=== PATIENT | male | born 1980 | race Caucasian/White ===

== ENCOUNTER 2017-12-12 12:01 | Emergency (ER) | payer MEDICAID, MEDICARE ==
[~2017-12-12] VITALS: Ht 162.6 cm; Wt 62.0 kg
[2017-12-12 16:25] VITALS: BP 122/84
== END 2017-12-12 18:57 | disposition home or self-care (01) ==
LOC: ER 13:07
DX: G62.9 Polyneuropathy, unspecified (principal); F17.200 Nicotine dependence, unspecified, uncomplicated; F12.10 Cannabis abuse, uncomplicated; Z48.89 Encounter for other specified surgical aftercare
CPT/HCPCS: 99283

== ENCOUNTER 2018-01-18 22:21 | Emergency (ER) | payer MEDICAID | END 2018-01-19 01:30 | disposition left against medical advice (07) | LOC: ER 01-19 00:51 | DX: R21 Rash and other nonspecific skin eruption (principal); Z53.21 Procedure and treatment not carried out due to patient leaving prior to being seen by health care provider ==

== ENCOUNTER 2019-04-02 19:54 | Emergency (ER) | payer MEDICAID, MEDICARE | END 2019-04-02 20:30 | disposition left against medical advice (07) | LOC: ER 20:28 | DX: M54.9 Dorsalgia, unspecified (principal); M79.606 Pain in leg, unspecified; Z53.21 Procedure and treatment not carried out due to patient leaving prior to being seen by health care provider ==

== ENCOUNTER 2025-05-25 15:03 | Emergency (ER) | payer SELFPAY ==
[~2025-05-25] VITALS: Ht 165.1 cm; Wt 68.0 kg
[2025-05-25 15:12] VITALS: BP 124/88; PULSE 76; RESP 16; TEMP 98.4; O2SAT 97
[2025-05-25 17:00] LABS: BASOPHILS % 0.2 % (0.0-2.0); EOSINOPHILS % 0.2 % (0.0-5.0); HEMATOCRIT. 44.5 % (42.0-52.0); HEMOGLOBIN. 15.1 g/dL (14.0-18.0); LYMPHOCYTES % 10.0 % (20.0-50.0); MEAN PLATELET VOLUME 7.2 fl (7.4-10.4); MONOCYTES % 5.5 % (2.0-8.0); NEUTROPHILS % 84.1 % (40.0-76.0); PLATELET 278 x1000/uL (130-400); RED BLOOD CELL COUNT 4.67 mill/uL (4.7-6.1); RED CELL DISTRIBUTION WIDTH 12.9 % (11.6-14.6)
[2025-05-25 17:14] LABS: CREATININE 0.8 mg/dL (0.6-1.3)
[2025-05-25 17:15] LABS: ETHANOL BLOOD 267 mg/dL (<10); PROTEIN TOTAL 6.9 g/dL (6.0-8.3); UREA NITROGEN BLOOD 11 mg/dL (9-23)
[2025-05-25 17:16] LABS: ASPARTATE AMINOTRANSFERASE 23 IU/L (<34)
[2025-05-25 17:17] LABS: BILIRUBIN DIRECT < 0.1 mg/dL (<=3.0); BILIRUBIN TOTAL 0.3 mg/dL (0.1-1.0)
[2025-05-25] MEDS ORDERED: MAGNESIUM/ALUMINUM HYDROXIDE/SIMETHICONE 30ML UDC PO PRN (20:15)
[2025-05-25] MEDS ORDERED: ACETAMINOPHEN 325MG TABLET PO PRN (20:15)
[2025-05-25] MEDS ORDERED: CLONIDINE 0.1MG TABLET PO PRN (20:15)
[2025-05-25] MEDS ORDERED: ONDANSETRON HCL 4MG/2ML INJ IV PRN (20:15)
[2025-05-25] MEDS ORDERED: ZOLPIDEM TARTRATE 5MG TABLET PO PRN (20:15)
[2025-05-25] MEDS ORDERED: MORPHINE SULFATE 2 MG/ML INJ (NOT FOR IM USE) IV PRN (20:15)
[2025-05-25] MEDS ORDERED: HYDROCODONE/ACETAMINOPHEN 5/325MG TABLET PO PRN (20:15)
[2025-05-25] MEDS ORDERED: LORAZEPAM 2MG/ML UD SYRINGE IV PRN (20:15)
[2025-05-25] MEDS ORDERED: NALOXONE HCL 0.4MG/ML VIAL IV PRN (20:30)
[2025-05-25] MEDS ORDERED: MVI, ADULT NO.1 10 ML, FOLIC ACID 1 MG, THIAMINE HCL 100 MG in SODIUM CHLORIDE 0.9% 1,0... IV SCH (21:00)
[2025-05-25] MEDS ORDERED: ENOXAPARIN 40MG/0.4ML SYR SUBCUT SCH (21:00)
[2025-05-26] MEDS ORDERED: SODIUM CHLORIDE 0.9% 1,000 ML IV SCH (05:00)
[2025-05-26] MEDS ORDERED: PANTOPRAZOLE SODIUM 40 MG/VIAL IV SCH (09:00)
== END 2025-05-25 21:00 | disposition left against medical advice (07) ==
LOC: ER 15:03 → EDBEDREQTM 19:57 → EDBEDREQ 19:57 → ENRESERV 20:20 → ER 21:00
DX: F10.229 Alcohol dependence with intoxication, unspecified (principal); F12.90 Cannabis use, unspecified, uncomplicated; Z79.899 Other long term (current) drug therapy; Y90.9 Presence of alcohol in blood, level not specified
CPT/HCPCS: 80076; 80048; 80320; 83735; 85025; 36415; 93005; 99284; Z7610 ×2; J3411; J3490; J7030; G0480